=== PATIENT | male | born 1980 | race American Indian/Alaskan Native ===

== ENCOUNTER 2021-02-21 06:07 | Day surgery (SDC) | payer MEDICAID ==
[~2021-02-21 06:07] MED LIST: MIDAZOLAM 2 MG/2 ML INJ IV NR; SODIUM CHLORIDE 0.9% 1000 ML 1,000 ML IV SCH; ceFAZolin/STERILE WATER 2 GM/20 ML SYRINGE IV NR; fentaNYL 100 MCG/2 ML INJ IV PRN
[2021-02-21 07:11] LABS: Hematocrit 38.4 % (35.5-45.6); Hemoglobin 12.8 gm/dl (11.8-15.2); Mean Corpuscular HGB Conc 33 % (32-34); Mean Corpuscular Volume 89 fl (84-94); Platelet Count 234 K/mm3 (140-440); Red Blood Count 4.31 M/mm3 (3.65-5.03); Red Cell Distribution Width 14.5 % (13.2-15.2)
[2021-02-21] MEDS ORDERED: LIDOCAINE (1%) 10 MG/1 ML VIAL 20 ML MDV ONE (07:11)
[2021-02-21] MEDS ORDERED: BUPIVACAINE/PF (0.5%) 5 MG/1 ML 30 ML VIAL INFILTRATI ONE ×2 (07:11→09:26)
[2021-02-21] MEDS ORDERED: SODIUM CHLORIDE 0.9% 250ML 250 ML ONE (07:12)
[2021-02-21] MEDS ORDERED: SODIUM CHLORIDE 0.9% 500 ML 500 ML ONE (07:12)
[2021-02-21] MEDS ORDERED: rifAMPin 600 MG VIAL ONE (07:12)
[2021-02-21] MEDS ORDERED: HEPARIN 10,000 UNITS/10 ML VIAL ONE (07:12)
[2021-02-21] MEDS ORDERED: SODIUM CHLORIDE P/F VIAL 10 ML 10 ML ONE (07:14)
[2021-02-21] MEDS ORDERED: LIDOCAINE MPF (2%) 20 MG/1 ML VIAL 5 ML ONE (07:30)
[2021-02-21] MEDS ORDERED: ONDANSETRON 4 MG/2 ML INJ ONE (07:30)
[2021-02-21] MEDS ORDERED: propofoL 200 MG/20 ML VIAL IV ONE ×4 (07:30→10:08)
[2021-02-21 07:41] LABS: Calcium 9.8 mg/dL (8.4-10.2)
[2021-02-21] MEDS ORDERED: BUPIVACAINE/PF (0.25%) 2.5 MG/ML 30 ML VIAL INFILTRATI ONE (08:00)
--- NOTE | 2021-02-21 08:14 | Short Stay Summary ---
Short Stay Documentation Date of service: 02/21/21 Narrative H&P: The patient is a 40-year-old male with a history of chronic renal sufficiency who was not yet on hemodialysis however it is anticipated that he will require hemodialysis within the near future. He presents for creation of long-term dialysis access in hopes of avoiding a permacath. He is right-hand dominant and will require creation of dialysis access in his left upper extremity. He has had no previous attempts at creation of dialysis access in the past. He has no current complaints at this time. A vein mapping demonstrated that he does not have adequate vein for creation of an arteriovenous fistula so he will require creation of an arteriovenous graft. He has been given the risk, benefits, and alternative procedures and has consented to the procedure. - History Past Medical History: CAD, heart failure, hypertension, renal failure, other (Sleep apnea) Past Surgical History: No surgical history Social history: smoking - Allergies and Medications Current Medications: Allergies latex Allergy (Verified 02/17/21 13:36) Itching Home Medications Medication Instructions Recorded Confirmed Last Taken Type AtorvaSTATin [Lipitor] 40 mg PO QHS 01/06/21 02/08/21 Unknown History Ergocalciferol [Vitamin D2] 1 cap PO QWEEK 01/06/21 02/08/21 Unknown History Furosemide [Lasix] 20 mg PO QDAY 01/06/21 02/08/21 Unknown History NIFEdipine [Nifedipine ER] 60 mg PO DAILY 01/06/21 02/08/21 Unknown History Potassium Chloride [K-Dur] 20 meq PO QDAY 01/06/21 02/08/21 Unknown History Spironolactone [Aldactone] 50 mg PO QDAY 01/06/21 02/08/21 Unknown History carvediloL [Coreg] 6.25 mg PO BID 01/06/21 02/08/21 Unknown History cloNIDine [Catapres] 0.3 mg PO DAILY 01/06/21 02/08/21 Unknown History hydrALAZINE [Apresoline TAB] 100 mg PO BID 01/06/21 02/08/21 Unknown History lisinopriL [Lisinopril] 20 mg PO DAILY 01/06/21 02/08/21 Unknown History Active Medications Fentanyl (Fentanyl 100 Mcg/2 Ml Inj) 100 mcg IV ONCE PRN PRN Reason: sedation for nerve block Stop: 02/21/21 13:00 Cefazolin Sodium 3 gm/ Sodium (Chloride) 100 mls @ 100 mls/30 min IV PREOP NR; Protocol Stop: 02/21/21 13:00 Sodium Chloride (Nacl 0.9% 1000 Ml) 1,000 mls @ 42 mls/hr IV DIRECT SILVANA Stop: 02/21/21 23:59 Midazolam HCl (Midazolam 2 Mg/2 Ml Inj) 2 mg IV PREOP NR Stop: 02/21/21 13:00 - Physical exam General appearance: no acute distress Lungs: Normal air movement Breasts: deferred Heart: Regular rate Gastrointestinal: normal Male Genitourinary: deferred Female Genitourinary: deferred Extremities: no ischemia, pulses intact (Palpable radial pulses bilaterally) Short Stay Discharge Plan Follow up with: PRIMARY CARE, [Primary Care Provider] - 7 Days
--- NOTE | 2021-02-21 08:52 | Anesthesia Consultation ---
Anesthesia Consult and Med Hx Date of service: 02/21/21 - Airway Anesthetic Teeth Evaluation: Good, Chipped (broken lower right molar) ROM Head & Neck: Adequate Mental/Hyoid Distance: Adequate Mallampati Class: Class III Intubation Access Assessment: Possibly Difficult - Pre-Operative Health Status ASA Pre-Surgery Classification: ASA3 Proposed Anesthetic Plan: MAC Nerve Block: supraclavicular - Pulmonary Hx Smoking: Yes Hx Respiratory Symptoms: No Hx Sleep Apnea: Yes (+ CPAP) - Cardiovascular System Hx Hypertension: Yes (home antihypertensives given in preop) Hx Heart Attack/AMI: No (hx CHF per patient; no signs/symptoms decompensation) Hx Percutaneous Transluminal Coronary Angioplasty (PTCA): No Hx Cardia Arrhythmia: No - Central Nervous System CVA: No - Endocrine Hx Renal Disease: Yes (CKD V) Hx Liver Disease: No Hx Insulin Dependent Diabetes: No Hx Non-Insulin Dependent Diabetes: No Hx Thyroid Disease: No - Other Systems Hx Substance Use: Yes (THC) Hx Obesity: Yes (BMI 38) - Additional Comments Anesthesia Medical History Comments: No prior GA. No FHx anesthetic complications.
[2021-02-21] MEDS ORDERED: fentaNYL 100 MCG/2 ML INJ IV PRN (08:53)
[2021-02-21] MEDS ORDERED: HYDROcodone/ACETAMINOPHEN 5-325 MG TAB PO PRN (08:53)
[2021-02-21] MEDS ORDERED: ONDANSETRON 4 MG/2 ML INJ IV PRN (08:53)
--- NOTE | 2021-02-21 08:53 | Anesthesia Day of Surgery ---
Anesthesia Day of Surgery - Day of Surgery Patient Examined: Yes Patient H&P Reviewed: Yes Patient is NPO: Yes Beta Blockers: Yes
[2021-02-21] MEDS ORDERED: SODIUM CHLORIDE 0.9% IRR 1,500 ML BOTTLE IR ONE (09:21)
[2021-02-21] MEDS ORDERED: HEPARIN 10,000 UNITS/10 ML VIAL IV ONE (09:22)
[2021-02-21] MEDS ORDERED: SODIUM CHLORIDE 0.9% 500 ML IVPB IV ONE (09:22)
[2021-02-21] MEDS ORDERED: SODIUM CHLORIDE 0.9% 250 ML IVPB IV ONE (09:22)
[2021-02-21] MEDS ORDERED: rifAMPin 600 MG VIAL IV ONE (09:25)
[2021-02-21] MEDS ORDERED: SODIUM CHLORIDE 0.9% P/F 10 ML VIAL IV ONE (09:30)
--- NOTE | 2021-02-21 10:47 | Short Stay Summary ---
Short Stay Documentation Date of service: 02/21/21 Narrative H&P: The patient is a 40-year-old male with a history of chronic renal sufficiency who was not yet on hemodialysis however it is anticipated that he will require hemodialysis in the near future. He was sent for creation of long-term dialysis access to avoid placement of a permacath for the anticipated hemodialysis. He is right-hand dominant and will require creation of hemodialysis access in his left upper extremity. He had a vein mapping that demonstrated he does not have adequate vein for creation of an arteriovenous fistula so he will require creation of an arteriovenous graft. He was given the risk, benefits, and alternative procedures and consented to the procedure. - History Principal diagnosis: Chronic Renal Insufficiency Past Medical History: CAD, heart failure, hypertension, renal failure, other (Sleep apnea) Past Surgical History: No surgical history Social history: smoking - Allergies and Medications Current Medications: Allergies latex Allergy (Verified 02/17/21 13:36) Itching Home Medications Medication Instructions Recorded Confirmed Last Taken Type AtorvaSTATin [Lipitor] 40 mg PO QHS 01/06/21 02/21/21 02/20/21 18:00 History Ergocalciferol [Vitamin D2] 1 cap PO QWEEK 01/06/21 02/21/21 02/20/21 18:00 History Furosemide [Lasix] 20 mg PO QDAY 01/06/21 02/21/21 02/20/21 18:00 History NIFEdipine [Nifedipine ER] 60 mg PO DAILY 01/06/21 02/21/21 02/21/21 07:30 History Potassium Chloride [K-Dur] 20 meq PO QDAY 01/06/21 02/21/21 02/20/21 18:00 History Spironolactone [Aldactone] 50 mg PO QDAY 01/06/21 02/21/21 02/20/21 18:00 History carvediloL [Coreg] 6.25 mg PO BID 01/06/21 02/21/21 02/21/21 07:30 History cloNIDine [Catapres] 0.3 mg PO DAILY 01/06/21 02/21/21 02/21/21 07:30 History hydrALAZINE [Apresoline TAB] 100 mg PO BID 01/06/21 02/21/21 02/21/21 07:30 History Active Medications Hydrocodone Bitart/Acetaminophen (Hydrocodone/Acetaminophen 5-325 Mg Tab) 2 each PO ONCE PRN PRN Reason: Pain, Moderate (4-6) Stop: 02/21/21 12:00 Fentanyl (Fentanyl 100 Mcg/2 Ml Inj) 100 mcg IV ONCE PRN PRN Reason: sedation for nerve block Stop: 02/21/21 13:00 Last Admin: 02/21/21 08:06 Dose: 50 mcg Documented by: Fentanyl (Fentanyl 100 Mcg/2 Ml Inj) 50 mcg IV Q5MIN PRN PRN Reason: Pain , Severe (7-10) Stop: 02/21/21 23:00 Cefazolin Sodium 3 gm/ Sodium (Chloride) 100 mls @ 100 mls/30 min IV PREOP NR; Protocol Stop: 02/21/21 13:00 Sodium Chloride (Nacl 0.9% 1000 Ml) 1,000 mls @ 42 mls/hr IV DIRECT SILVANA Stop: 02/21/21 23:59 Last Admin: 02/21/21 08:06 Dose: 42 mls/hr Documented by: Midazolam HCl (Midazolam 2 Mg/2 Ml Inj) 2 mg IV PREOP NR Stop: 02/21/21 13:00 Last Admin: 02/21/21 08:06 Dose: 2 mg Documented by: Ondansetron HCl (Ondansetron 4 Mg/2 Ml Inj) 4 mg IV ONCE PRN PRN Reason: Nausea And Vomiting Stop: 02/21/21 12:00 - Physical exam General appearance: no acute distress Lungs: Normal air movement Breasts: deferred Heart: Regular rate Male Genitourinary: deferred Extremities: no ischemia, pulses intact (Palpable radial pulses bilaterally) - Brief post op/procedure progress note Date of procedure: 02/21/21 Pre-op diagnosis: Chronic Renal Insufficiency Post-op diagnosis: same Procedure: Creation of Left Brachial Artery to Left Axillary Vein Arteriovenous Graft with 7 mm Bovine Artegraft Anesthesia: MAC, regional Surgeon: CHANTEL DE LA VEGA Estimated blood loss: minimal Pathology: none Condition: stable - Disposition Condition at discharge: Good Disposition: DC-01 TO HOME OR SELFCARE Short Stay Discharge Plan Activity: other (No heavy lifting with left arm for 2 weeks.) Wound: open to air, keep clean and dry, other (Okay to wash the left arm wounds with soap and water but do not soak in water for 2 weeks.) Follow up with: CHANTEL DE LA VEGA MD [Staff Physician] - 14 Days Prescriptions: HYDROcodone/APAP 7.5-325 [[place] 7.5/325] 1 each PO Q6HR PRN #30 tablet PRN Reason: Pain
--- NOTE | 2021-02-21 10:50 | Operative Report ---
Operative Report Operative Report: Date of procedure: 02/21/2021 Pre-operative diagnosis: Chronic Renal Insufficiency Post-operative diagnosis: Same Procedure(s): 1. Creation of Left Brachial Artery to Axillary Vein AV Graft with 7 mm Bovine Graft Artergraft Surgeon: Alton Garcia MD Bindery Technician: None Anesthesia: Regional/MAC EBL: Minimal Counts: Correct Complications: None Condition: Stable Findings: Successful Creation of Left Arm AV Graft with Palpable Thrill and Palpable Radial Pulse at the Completion of the Case. Specimen: None Indication: The patient is a 40-year-old male with a history of chronic renal insufficiency who is not yet on hemodialysis however it is anticipated that he would require hemodialysis within the near future. He is in need of long-term dialysis access to avoid permacath insertion and his work-up revealed that he is not a candidate for creation of an arteriovenous fistula. He was offered an arteriovenous graft and was given the risk, benefits, and alternative procedures and consented to the procedure. Description of Procedure: Prior to being transported to the operating room the patient had a regional block of the left arm performed. After the block was performed the patient was transported to the operating room and adequately sedated. The patient's left arm was then prepped and draped in normal sterile fashion. A longitudinal incision was made on the medial aspect of the arm just proximal to the antecubital crease and carried down to the brachial artery using sharp dissec tion. The brachial artery was dissected out circumferentially both proximally and distally and controlled with vessel loops. A second incision was created in longitudinal fashion on the medial aspect of the arm just distal to the axillary crease and carried down to the axillary vein using sharp dissection. Axillary vein was dissected out circumferentially and controlled with a vessel loop. I della drummond used a Dana-Wick tunneler to tunnel from the brachial artery incision to the axillary vein incision and then pulled an 7 mm bovine through the tunnel. I infused with heparinized saline to ensure that it was not twisted or kinked. I put the brachial artery vessel loops on tension controlling the flow and then created an arteriotomy using an 11 blade and Cabrera scissors. I beveled the graft and created an end-to-side anastomosis using 6-0 Prolene running fashion. I clamped the graft just proximal to the anastomosis and then released the vessel loops restoring flow in the brachial artery. I placed quick clot in incision to achieve hemostasis. I cut the proximal end of the graft to the appropriate length and beveled the graft in preparation for a venous anastomosis. I controlled the axillary vein a Satinsky clamp and created a venotomy using an 11 blade and Cabrera scissors. I created an end to side anastomosis using a 6-0 Prolene in running fashion. Prior to completing the anastomosis I flushed the graft to ensure there was no thrombus and then completed the anastamosis. I released all clamps allowing flow into the AV graft which had an excellent thrill. I packed the wound with quick clot to achieve hemostasis. I closed both wounds in 2 layers using 3-0 Vicryl in running fashion in the deep dermal layer and 4-0 Monocryl in running fashion the subcuticular layer. I dressed both wounds with Dermabond. The patient tolerated the procedure well all sponge, needle, and instrument counts were correct. The patient was taken to recovery in stable condition.
--- NOTE | 2021-02-21 11:58 | Post Anesthesia Evaluation ---
- Post Anesthesia Evaluation Patient Participated: Yes Airway Patent: Yes Stable Respiratory Function: Yes Nausea/Vomiting: No Temp > 96.8F: Yes Pain Manageable: Yes Adequeate Hydration: Yes Anesthesia Complications: No Block Receding Appropriately: Yes (arm sling provided)
[2021-02-21 12:56] VITALS: BP 131/90
== END 2021-02-21 11:49 | disposition home or self-care (01) ==
LOC: OR 06:07
PROVIDERS: ATTEND Surgery Vascular Surgery
DX: I13.2 Hypertensive heart and chronic kidney disease with heart failure and with stage 5 chronic kidney disease, or end stage renal disease (principal); N18.6 End stage renal disease; I50.9 Heart failure, unspecified; G47.30 Sleep apnea, unspecified; E66.9 Obesity, unspecified; E78.00 Pure hypercholesterolemia, unspecified; F17.210 Nicotine dependence, cigarettes, uncomplicated; Z79.899 Other long term (current) drug therapy; Z98.890 Other specified postprocedural states; Z68.38 Body mass index [BMI] 38.0-38.9, adult; Z91.040 Latex allergy status
CPT/HCPCS: 36415; 36830; 64415; 80048; 85027; C1768; J0690; J1644; J2250; J2405; J2704; J3010; J3490; J7030; J7040; J7050; 64450